=== PATIENT | female | born 2000 | race Caucasian/White ===

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

== ENCOUNTER 2019-06-17 22:58 | Emergency (ER) | payer SELFPAY ==
[2019-06-17] MEDS ORDERED: Lidocaine 2% with EPINEPHrine 1:200,000 20 ML SDV INJECT ONE (23:10)
[2019-06-18] MEDS ORDERED: Cephalexin 500 MG Cap PO ONE (00:01)
[2019-06-18] MEDS ORDERED: Bacitracin Oint 1 GM U/D Packet TOP ONE (00:01)
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
== END 2019-06-18 00:22 | disposition home or self-care (01) ==
LOC: DL.ED 22:58
DX: S01.81XA Laceration without foreign body of other part of head, initial encounter (principal); F17.210 Nicotine dependence, cigarettes, uncomplicated; X99.0XXA Assault by sharp glass, initial encounter; Y93.89 Activity, other specified; Y92.009 Unspecified place in unspecified non-institutional (private) residence as the place of occurrence of the external cause
CPT/HCPCS: 12011; 12042; 99282; A9270; 12014; 99283

== ENCOUNTER 2020-11-07 01:13 | Emergency (ER) | payer SELFPAY ==
[2020-11-07] MEDS ORDERED: Sodium Chloride 0.9% 1,000 ML IV ONE (02:39)
[2020-11-07 03:06] LABS: ANION GAP 17.4 mEq/L (7-13); CHLORIDE,CL 102 mmol/L (98-107); SODIUM,NA 142 mmol/L (136-145)
[2020-11-07 03:09] LABS: ACETAMINOPHEN 0 ug/mL (10-30 (Therapeutic))
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
[2020-11-09 13:43] LABS: C.TRACHOMATIS BY TMA Negative (Negative); N.GONORRHOEAE BY TMA Negative (Negative)
== END 2020-11-07 06:37 | disposition home or self-care (01) ==
LOC: DL.ED 01:13
DX: F19.10 Other psychoactive substance abuse, uncomplicated (principal); Z72.0 Tobacco use
CPT/HCPCS: 36415; 80053; 80143; 80179; 80305-QW; 80307; 81001; 81025; 85025; 87491; 87591; 99283; 99285

== ENCOUNTER 2020-11-08 05:39 | Emergency (ER) | payer SELFPAY ==
[2020-11-08] MEDS ORDERED: Haloperidol Lactate 5 MG/ML SDV ONE (05:47)
[2020-11-08] MEDS ORDERED: LORazepam 2 MG/ML SDV ONE (05:48)
[2020-11-08] MEDS ORDERED: LORazepam 2 MG/ML SDV IM ONE (06:08)
[2020-11-08] MEDS ORDERED: Haloperidol Lactate 5 MG/ML SDV IM ONE (06:08)
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
[2020-11-08 06:41] LABS: CHLORIDE,CL 103 mmol/L (98-107); SODIUM,NA 142 mmol/L (136-145)
[2020-11-08] MEDS ORDERED: Lactated Ringers 1,000 ML IV ONE (07:47)
[2020-11-08] MEDS ORDERED: Potassium Chloride 20 MEQ in Premix Bag 1 BAG IV ONE (07:47)
[2020-11-08] MEDS ORDERED: Potassium Chloride 10 MEQ Tab.ER PO ONE (10:58)
== END 2020-11-08 11:22 ==
LOC: DL.ED 05:39
DX: E87.6 Hypokalemia (principal); F15.129 Other stimulant abuse with intoxication, unspecified
CPT/HCPCS: 36415; 80053; 80307; 85025; 93005; 96365; 96366; 96372; 99283; 99285; A9270; J1630; J2060; J3480; J7120

== ENCOUNTER 2024-07-15 11:41 | Day surgery (SDC) | payer MEDICAID ==
[2024-07-15] MEDS ORDERED: Famotidine 20 MG/2 ML SDV IV ONE (11:42)
[2024-07-15] MEDS ORDERED: Dexamethasone 4 MG/ML SDV IV ONE (11:42)
[2024-07-15] MEDS ORDERED: Propofol 200 MG/20 ML SDV IV ONE (11:42)
[2024-07-15] MEDS ORDERED: Lactated Ringers 1,000 ML IV ONE (11:42)
[2024-07-15] MEDS ORDERED: fentaNYL 100 MCG/2 ML SDV EPIDUR ONE (11:42)
[2024-07-15] MEDS ORDERED: Ondansetron 4 MG/2 ML SDV IV ONE (11:42)
[2024-07-15 12:06] LABS: HEMATOCRIT 35.2 % (37.0-47.0); MEAN CORPUSCULAR HEMOGLOBIN 30.2 pg (27.0-34.0); MEAN CORPUSCULAR HGB CONC 34.1 g/dL (33.0-35.0); MEAN CORPUSCULAR VOLUME 88.7 fL (80-100); PLATELET COUNT,PLT 302 10^3/uL (150-450); RED BLOOD CELL COUNT 3.97 10^6/uL (4.2-5.4)
[2024-07-15 12:18] LABS: BASOPHILS PERCENT AUTO 0.3 % (0.0-1.0); EOSINOPHILS PERCENT AUTO 0.6 % (1.0-3.0); LYMPHOCYTES PERCENT AUTO 34.5 % (20.5-50.1); MONOCYTES PERCENT AUTO 9.1 % (2-8); NEUTROPHILS PERCENT AUTO 55.5 % (42.2-75.2)
[2024-07-15] MEDS ORDERED: Dexamethasone 4 MG/ML SDV ONE (12:18)
[2024-07-15] MEDS ORDERED: Ondansetron 4 MG/2 ML SDV ONE (12:18)
[2024-07-15] MEDS ORDERED: Famotidine 20 MG/2 ML SDV ONE (12:18)
[2024-07-15] MEDS: Lactated Ringers 1,000 ML IV SCH (12:27)
[2024-07-15] MEDS ORDERED: ceFAZolin 2 GM Vial ONE (12:30)
[2024-07-15 12:56] LABS: LYMPHOCYTES PERCENT MAN 32 % (20-50); MONOCYTES PERCENT MAN 9 % (2-8); SEG NEUTROPHILS PERCENT MAN 60 % (42-75)
[2024-07-15] MEDS: Acetaminophen/oxyCODONE 325-5 MG Tab PO PRN (16:05)
== END 2024-07-15 16:16 | disposition home or self-care (01) ==
LOC: DL.SDS 11:41
PROVIDERS: ATTEND Student in an Organized Health Care Education/Training Program
DX: O03.4 Incomplete spontaneous abortion without complication (principal)
CPT/HCPCS: 36415; 59812; 85025; 86850; 86900; 86901; A9270; J7120